=== PATIENT | female | born 1965 | race Caucasian/White ===

== ENCOUNTER 2022-09-01 10:50 | Outpatient (CLI) | payer OTHER, SELFPAY | END 2022-09-01 10:51 | disposition home or self-care (01) | PROVIDERS: PCP Family Medicine; Visit Provider Internal Medicine | DX: Z12.11 Encounter for screening for malignant neoplasm of colon (principal); Z86.010 Personal history of colon polyps | CPT/HCPCS: 45378; J2250; J3010 ==

== ENCOUNTER 2023-10-05 12:33 | Outpatient (CLI) | payer OTHER, SELFPAY ==
--- NOTE | 2023-10-05 13:00 | MR_ITS ---
[facility] [address] [facility] [address] Phone:?[phone] Fax:?[phone] Referring Physician Information: Marcio Schaefer M.D. [address] [place] [id number] Phone:?[phone] Fax:?[phone] Patient:Connor Phelps D.O.B:?1965 Sex:?Female Phone:?[phone] [facility] MRN:?[id number] Exam Date:?10/05/2023 EXAM: MRI of the RIGHT KNEE, without contrast CLINICAL INFORMATION: Female, 58 years old, with right knee pain. INDICATION: Evaluate for meniscal tear. PRIOR SURGERY: None reported. PLAIN FILMS: None available. COMPARISONS: No prior MRIs available. TECHNICAL INFORMATION: Using a 1.5T MR scanner and a localizing surface coil: sagittals: PD, PDFS coronals: PD, T2FS axials: PD, PDFS SEDATION: None CONTRAST: None FINDINGS: Knee joint: Effusion: Trace-small right knee effusion. Popliteal cyst: None. Loose bodies: None. Subcutaneous and extra-articular soft tissues: Unremarkable. Ligaments: ACL: Intact ACL anteromedial and posterolateral bundles, without sprain or tear. PCL: Intact PCL, without acute or chronic injury. MCL: Intact MCL superficial and deep layers, without injury. LCL: Intact LCL, without injury. Posterolateral corner: No posterolateral corner soft tissue injury. Popliteus, biceps femoris, iliotibial band, popliteofibular ligament and lateral gastrocnemius are intact. Posteromedial corner: No posteromedial corner soft tissue injury. Semimembranosus, pes anserine tendons and posterior oblique ligament are without injury, tendinopathy or bursitis. Extensor mechanism: Patellar tendon: Intact, without tendinopathy. Quadriceps tendon: Intact, without tendinopathy. Retinacula: Medial and lateral retinacula are intact. Fat pads: Unremarkable infrapatellar Hoffa's, quadriceps and prefemoral fat pads. Medial compartment: Medial meniscus: No articular surface, meniscosynovial junction or root tear. No displacement, extrusion or parameniscal cyst. Medial femoral condyle: No chondromalacia or osteochondral abnormality. Medial tibial plateau: No chondromalacia or osteochondral abnormality. Lateral compartment: Lateral meniscus: No articular surface, meniscosynovial junction or root tear. No displacement, extrusion or parameniscal cyst. Lateral femoral condyle: No chondromalacia or osteochondral abnormality. Lateral tibial plateau: No chondromalacia or osteochondral abnormality. Patellofemoral joint: Patella: Broad-based grade II chondromalacia is centered about the mid median ridge of the patella with foci of near full-thickness chondral fissuring (axial T2FS series 4 image 10 and sagittal PDFS series 6 image 16). Trochlea: No chondromalacia or osteochondral abnormality. Proximal tibiofibular joint: Unremarkable, without evidence of ligament sprain injury, joint effusion or adjacent marrow edema. Bones: Approximately 1.4 x 1.0 cm area of nondisplaced subchondral fracturing involving the posterolateral aspect of the medial tibial plateau, with marked surrounding bone marrow edema (coronal PD series 7 and coronal STIR series 8 image 22 and sagittal PD series 5 and sagittal PDFS series 6 images 18-20). Moderate edema- like signal is also present in the and posterosuperior aspect of the medial femoral condyle, with a 7 x 10 mm area of subcortical fracturing (sagittal PD series 5 and sagittal PDFS series 6 image 24 and coronal PD series 7 image 23). IMPRESSION: 1. Nondisplaced subchondral fractures involving the posterolateral aspect of the medial tibial plateau and posterosuperior aspect of the medial femoral condyle, each with significant surrounding bone marrow edema. 2. Trace-small knee joint effusion. No popliteal (Frias's) cyst. 3. Grade II chondromalacia of the patella, with foci of near full-thickness chondral fissuring, but without reactive osseous changes. 4. No cruciate or collateral ligament sprain/tear. 5. No medial or lateral meniscal tear. 6. No osteochondral abnormality of the medial or lateral compartment. BC Electronically signed on 10/05/2023 2:30:00 PM by Erickson Marrufo M.D.
== END 2023-10-05 12:34 | disposition home or self-care (01) ==
LOC: MRI 12:34
PROVIDERS: PCP Family Medicine; Visit Provider Orthopaedic Surgery
DX: M25.561 Pain in right knee (principal); S82.144A Nondisplaced bicondylar fracture of right tibia, initial encounter for closed fracture; M25.461 Effusion, right knee; M22.41 Chondromalacia patellae, right knee
CPT/HCPCS: 73721

== ENCOUNTER 2023-10-29 14:17 | Outpatient (CLI) | payer OTHER, SELFPAY | END 2023-10-29 14:18 | disposition home or self-care (01) | PROVIDERS: PCP Family Medicine; Visit Provider Family Medicine | DX: E78.00 Pure hypercholesterolemia, unspecified (principal); R53.83 Other fatigue; Z13.228 Encounter for screening for other metabolic disorders; Z13.21 Encounter for screening for nutritional disorder; Z13.29 Encounter for screening for other suspected endocrine disorder | CPT/HCPCS: 80053; 80061; 82306; 82652; 84443 ==

== ENCOUNTER 2023-11-13 09:49 | Outpatient (CLI) | payer OTHER, SELFPAY ==
--- NOTE | 2023-11-13 10:15 | MM_ITS ---
Patient: ARYA OSMAN Facility:?[facility] Patient ID:?[id number] Site Patient ID:?[id number] Site :?1965 Study:?XRay-Breast Bilateral 3D W/CAD-11/13/2023 10:28:45 AM Ordering Physician:Edu Final Report: BILATERAL SCREENING MAMMOGRAM WITH COMPUTER-AIDED DETECTION AND TOMOSYNTHESIS TECHNIQUE: CC and MLO views were obtained. These mammographic images have been obtained using full-field digital technique. These mammographic images were interpreted with the benefit of computer-aided detection. Breast Tomosynthesis was used in this interpretation. COMPARISON FILM: 04/20/17. FINDINGS: The breasts are extremely dense, which lowers the sensitivity of mammography IMPRESSION: There is no radiographic evidence for malignancy. ASSESSMENT: BI-RADS Category 1: Negative RECOMMENDATION: Routine screening mammogram in 1 year. A lay language report of this examination will be provided to the patient. Eleazar Rich M.D. Diagnostic Radiologist [email or web address] Transcribed: 2:23 p.mTian rainey/Dictated by: Eleazar Rich MD @ 11/13/2023 12:36:00 PM Signed by:?Eleazar Rich MD @11/13/2023 2:58:25 PM (Electronic Signature)
== END 2023-11-13 09:50 | disposition home or self-care (01) ==
LOC: MAMMO 09:49
PROVIDERS: PCP Family Medicine; Visit Provider Family Medicine
DX: Z12.31 Encounter for screening mammogram for malignant neoplasm of breast (principal); R92.2 Inconclusive mammogram
CPT/HCPCS: 77063; 77067